=== PATIENT | female | born 1970 | race Caucasian/White ===

== ENCOUNTER 2017-02-25 13:43 | Emergency (ER) | payer BC | END 2017-02-25 17:42 | disposition home or self-care (01) | LOC: ER 13:43 | DX: E86.0 Dehydration (principal); R53.1 Weakness; R42 Dizziness and giddiness; G43.909 Migraine, unspecified, not intractable, without status migrainosus; Z90.710 Acquired absence of both cervix and uterus; Z88.0 Allergy status to penicillin | CPT/HCPCS: 36415; 96361; 96365; 96366 ==